=== PATIENT | female | born 1995 | race Two or more races ===

== ENCOUNTER 2017-09-29 12:01 | Emergency (ER) | payer SELFPAY ==
[2017-09-29 12:07] VITALS: BP 104/74
--- NOTE | 2017-09-29 12:32 | EDPHY ---
H & P Time Seen by Provider: 09/29/17 12:29 HPI/ROS: HPI: This is a 22-year-old female who presents with Chief Complaint: Asking to fill out study abroad physical form Location: body Quality: Requesting physical form to be filled out Duration: Today Signs and Symptoms: Denies fever, denies nausea, denies headache, denies vomiting, denies abdominal pain Timing: Acute Severity: Mild Context: Patient is an international student at [employer] presents with request of feeling out of physical form for study abroad. She will be leaving in 8 days. The form is due prior to October 07. Patient was informed by the triage nurse that [facility] does not fill out physical forms. Patient insisted on speaking with a provider. I again advised patient that we do not fill out physical forms. She is able to go to [facility] on Sunday to have this form completed. She was given the name, number and address. Modifying Factors: None Comment: ROS: see HPI Constitutional: No fever, no chills, no weight loss Eyes: No blurred vision Respiratory: No shortness of breath, no cough Cardiovascular: No chest pain Gastrointestinal: No nausea, no vomiting, no diarrhea Genitourinary: No dysuria Extremities: No myalgias Neurologic: No weakness, no numbness Skin: No rashes Hematologic: No bruising, no bleeding MEDICAL/SURGICAL/SOCIAL HISTORY: Medical history: Generally healthy. Does not take any regular medications. Surgical history: Denies Social history: [employer] student. Family history noncontributory. Physical exam not performed. Past Medical/Surgical History: Generally healthy. Social History: [employer] international student. Nonsmoker. Smoking Status: Never smoked Constitutional: Initial Vital Signs Temperature (C) 36.8 C 09/29/17 12:03 Heart Rate 88 09/29/17 12:03 Respiratory Rate 16 09/29/17 12:03 Blood Pressure 104/74 09/29/17 12:03 O2 Sat (%) 98 09/29/17 12:03 O2 Delivery Mode Room Air Allergies/Adverse Reactions: No Known Allergies Allergy (Unverified 09/29/17 12:03) Home Medications: Medication Instructions Recorded NK [No Known Home Meds] 09/29/17 Departure - Departure Disposition: Home, Routine, Self-Care Clinical Impression: School recess,camp Condition: Good Referrals: ZEINA Mcnally,. [Clinic] - 10/01/17
== END 2017-09-29 13:10 | disposition home or self-care (01) ==
DX: Z02.0 Encounter for examination for admission to educational institution (principal)